=== PATIENT | female | born 1975 | race African-American/Black ===

== ENCOUNTER 2019-02-02 07:25 | Emergency (ER) | payer MEDICAID ==
[~2019-02-02] VITALS: Ht 170.2 cm; Wt 86.0 kg
[2019-02-02] MEDS ORDERED: HYDROCODONE/ACETAMINOPHEN 5/325MG TABLET PO ONE (08:15)
[2019-02-02] MEDS ORDERED: LIDOCAINE HCL/PF 1% 10 MG/ML 5ML VIAL IJ ONE (08:15)
[2019-02-02] MEDS ORDERED: BACITRACIN ZINC OINT UDPKT TOP ONE (08:15)
[2019-02-02] MEDS ORDERED: TETANUS, DIPHTHERIA, PERTUSSIS VAC/PF 0.5ML (>7YR OLD) IM ONE (08:15)
[2019-02-02 09:04] VITALS: BP 142/83
== END 2019-02-02 10:04 | disposition home or self-care (01) ==
LOC: ER 07:30
DX: S61.210A Laceration without foreign body of right index finger without damage to nail, initial encounter (principal); Z98.890 Other specified postprocedural states; W20.8XXA Other cause of strike by thrown, projected or falling object, initial encounter; Y93.89 Activity, other specified; Y92.89 Other specified places as the place of occurrence of the external cause; Y99.8 Other external cause status
CPT/HCPCS: 12002; 73140; 90471; 90715; 99283; J3490

== ENCOUNTER 2023-11-05 21:24 | Emergency (ER) | payer MEDICAID ==
[~2023-11-05] VITALS: Ht 170.2 cm; Wt 68.0 kg
[2023-11-05 21:37] VITALS: TEMP 98.6; O2SAT 100
[2023-11-05 21:55] VITALS: BP 130/70; PULSE 120; RESP 16
[2023-11-05] MEDS ORDERED: SODIUM CHLORIDE 0.9% 1,000 ML IV ONE (23:00)
== END 2023-11-06 01:54 | disposition left against medical advice (07) ==
LOC: ER 21:24
DX: I47.10 Supraventricular tachycardia, unspecified (principal); R07.9 Chest pain, unspecified; E11.9 Type 2 diabetes mellitus without complications
CPT/HCPCS: 99283; 71045; 93005; J7030

== ENCOUNTER 2024-05-20 15:19 | Emergency (ER) | payer MEDICAID ==
[~2024-05-20] VITALS: Ht 170.2 cm; Wt 72.6 kg
[2024-05-20 15:31] VITALS: O2SAT 100
[2024-05-20] MEDS: BACITRACIN ZINC OINT UDPKT TOP ONE (17:25)
[2024-05-20] MEDS: LIDOCAINE HCL/PF 1% 10 MG/ML 5ML VIAL INFIL ONE (17:25)
[2024-05-20] MEDS ORDERED: SULF1TAB48 MT (18:18)
[2024-05-20] MEDS ORDERED: CEPH500T MT (18:18)
[2024-05-20 18:46] VITALS: BP 124/71; PULSE 99; RESP 16; TEMP 98.3
== END 2024-05-20 22:22 | disposition home or self-care (01) ==
LOC: ER 15:19
DX: L02.412 Cutaneous abscess of left axilla (principal); E11.9 Type 2 diabetes mellitus without complications
CPT/HCPCS: 81025; 10060; 99283; J3490; Z7610 ×3